=== PATIENT | male | born 1945 | race Caucasian/White ===

== ENCOUNTER 2021-11-07 08:29 | Outpatient (CLI) | payer MEDICARE ==
[~2021-11-07 08:29] MED LIST: AMLO1CAP PO; ASCO-134 PO; FURO40TA4 PO; POTA8TAB69 PO; PRED5DRO23 RIGHTEYE; VITA1TAB57 PO
== END 2021-11-07 23:59 | disposition home or self-care (01) ==
LOC: CARD DIAG 08:29
PROVIDERS: ATTEND Internal Medicine Cardiovascular Disease
DX: I35.0 Nonrheumatic aortic (valve) stenosis (principal)
CPT/HCPCS: 93306

== ENCOUNTER 2024-12-04 11:30 | Inpatient (IN) | payer MEDICARE ==
[~2024-12-04] VITALS: Ht 170.2 cm; Wt 173.2 kg
[~2024-12-04 11:30] MED LIST changes: -AMLO1CAP PO; +CARV6.2553 PO; +CHOL10008 PO; +FER325T PO; +LOSA1TAB41 PO; +PANT40TA54 PO; -POTA8TAB69 PO; +POTA99CA PO; +TRAM50TA2 PO; +VALA100031 PO
[2024-12-04 12:53] LABS: BASOPHILS # (AUTO) 0.1 X10'3 (0-0.2); BASOPHILS % (AUTO) 0.7 % (0-1); EOSINOPHILS # (AUTO) 0.2 X10'3 (0-0.9); EOSINOPHILS % (AUTO) 2.3 % (0-6); LYMPHOCYTES # (AUTO) 1.5 X10'3 (1.1-4.8); LYMPHOCYTES % (AUTO) 14.2 % (21-51); MEAN PLATELET VOLUME 8.4 FL (7.4-10.4); MONOCYTES # (AUTO) 1.3 X10'3 (0-0.9); MONOCYTES % (AUTO) 12.4 % (2-12); NEUTROPHILS # (AUTO) 7.4 X10'3 (1.8-7.7); NEUTROPHILS % (AUTO) 70.4 % (42-75); PLATELET COUNT 245 X10'3 (140-440); WHITE BLOOD COUNT 10.5 X10'3 (4.5-11.0)
[2024-12-04 13:17] LABS: ALANINE AMINOTRANSFERASE 9 U/L (12-78); ALBUMIN 2.8 G/DL (3.4-5.0); ALBUMIN/GLOBULIN RATIO 0.8 (1.1-1.5); ALKALINE PHOSPHATASE 93 IU/L (46-116); ANION GAP 6 (8-16); ASPARTATE AMINO TRANSFERASE 9 U/L (10-37); BILIRUBIN,TOTAL 0.8 MG/DL (0.1-1.0); BLOOD UREA NITROGEN 20 MG/DL (7-18); BUN/CREATININE RATIO 17.7 (10.0-20.0); CALCIUM 8.3 MG/DL (8.5-10.1); CHLORIDE 102 MMOL/L (99-107); CREATININE 1.13 MG/DL (0.60-1.10); GLUCOSE 74 MG/DL (70-104); POTASSIUM 3.7 MMOL/L (3.5-5.1); SODIUM 140 MMOL/L (135-145); TOTAL CARBON DIOXIDE 32.3 MMOL/L (24-32); TOTAL PROTEIN 6.5 G/DL (6.4-8.2); eCRCL 51 ML/MIN; eGFR 63 ML/MIN
[2024-12-04 13:24] LABS: PRO BRAIN NATRIURETIC PEPTIDE 3522 PG/ML (0-450)
[2024-12-04 13:31] LABS: RED BLOOD COUNT 3.34 X10'6 (4.70-6.10)
[2024-12-04 13:32] LABS: HEMATOCRIT 22.4 % (42.0-52.0); MEAN CORPUSCULAR HEMOGLOBIN 20.9 PG (27.0-31.0); MEAN CORPUSCULAR HGB CONC 31.2 g/dL (33.0-36.5); RED CELL DISTRIBUTION WIDTH 20.4 % (11.5-14.5)
[2024-12-04 13:48] LABS: ANISOCYTOSIS 3+; HYPOCHROMASIA 1+; MICROCYTOSIS 2+; PLATELET ESTIMATE NORMAL; STOMATOCYTES 1+
[2024-12-04] MEDS ORDERED: acetaminophen 325mg tablet PO PRN (14:20)
[2024-12-04] MEDS ORDERED: potassium Cl 20 mEq SR tablet PO PRN (14:20)
[2024-12-04] MEDS ORDERED: potassium Cl 40MEQ/1/2NS 520ml 520 ML IV PRN (14:20)
[2024-12-04] MEDS ORDERED: magnesium sulf-water 2g/50mL 50 ML IV PRN (14:20)
[2024-12-04] MEDS ORDERED: magnesium hydroxide 30ml (MOM) UD suspension PO PRN (14:20)
[2024-12-04] MEDS ORDERED: ondansetron/PF 4mg/2ml inj IV PRN (14:20)
[2024-12-04] MEDS ORDERED: magnesium sulf-water 4G/100mL 100 ML IV PRN (14:20)
[2024-12-04] MEDS: furosemide 10 MG/1 ML 10ml inj IV ONE (14:42)
[2024-12-04] MEDS: ferrous sulfate 325mg tablet PO SCH (17:31)
[2024-12-04] MEDS: furosemide 40mg/4ml inj IV SCH (20:00)
[2024-12-04] MEDS: carVEDilol 3.125mg tablet PO SCH (20:00)
[2024-12-04] MEDS: docusate sod 100mg capsule PO SCH (20:00)
[2024-12-04] MEDS: K and/or MAG REPLACEMENT MC SCH (20:00)
[2024-12-04] MEDS: mag hydrox/Alum hydrox/simeth 30ml oral suspension PO PRN (22:21)
[2024-12-04 23:05] VITALS: BP 98/50; PULSE 66; RESP 12; TEMP 97.8; O2SAT 94
[2024-12-05] VITALS (11 sets, daily range): BP systolic 103–152; BP diastolic 40–77; PULSE 53–85; RESP 13–21; TEMP 97.3–98.5; O2SAT 94–100
[2024-12-05] MEDS: traMADol 50MG tablet PO PRN (00:14)
[2024-12-05 06:06] LABS: BASOPHILS # (AUTO) 0.1 X10'3 (0-0.2); BASOPHILS % (AUTO) 0.7 % (0-1); EOSINOPHILS # (AUTO) 0.2 X10'3 (0-0.9); EOSINOPHILS % (AUTO) 2.9 % (0-6); LYMPHOCYTES # (AUTO) 1.5 X10'3 (1.1-4.8); LYMPHOCYTES % (AUTO) 18.4 % (21-51); MEAN PLATELET VOLUME 8.8 FL (7.4-10.4); MONOCYTES # (AUTO) 1.1 X10'3 (0-0.9); MONOCYTES % (AUTO) 12.9 % (2-12); NEUTROPHILS # (AUTO) 5.5 X10'3 (1.8-7.7); NEUTROPHILS % (AUTO) 65.1 % (42-75); PLATELET COUNT 218 X10'3 (140-440); WHITE BLOOD COUNT 8.4 X10'3 (4.5-11.0)
[2024-12-05 06:29] LABS: ALANINE AMINOTRANSFERASE 13 U/L (12-78); ALBUMIN 2.6 G/DL (3.4-5.0); ALBUMIN/GLOBULIN RATIO 0.7 (1.1-1.5); ALKALINE PHOSPHATASE 90 IU/L (46-116); ANION GAP 4 (8-16); ASPARTATE AMINO TRANSFERASE 12 U/L (10-37); BILIRUBIN,TOTAL 0.9 MG/DL (0.1-1.0); BLOOD UREA NITROGEN 19 MG/DL (7-18); BUN/CREATININE RATIO 17.8 (10.0-20.0); CALCIUM 8.3 MG/DL (8.5-10.1); CHLORIDE 101 MMOL/L (99-107); CREATININE 1.07 MG/DL (0.60-1.10); GLUCOSE 78 MG/DL (70-104); MAGNESIUM 2.4 MG/DL (1.5-2.4); POTASSIUM 3.4 MMOL/L (3.5-5.1); SODIUM 141 MMOL/L (135-145); TOTAL CARBON DIOXIDE 36.2 MMOL/L (24-32); TOTAL PROTEIN 6.1 G/DL (6.4-8.2); eCRCL 54 ML/MIN; eGFR 67 ML/MIN
[2024-12-05 07:05] LABS: HEMATOCRIT 22.8 % (42.0-52.0); MEAN CORPUSCULAR HEMOGLOBIN 20.7 PG (27.0-31.0); MEAN CORPUSCULAR HGB CONC 29.6 g/dL (33.0-36.5); RED BLOOD COUNT 3.25 X10'6 (4.70-6.10); RED CELL DISTRIBUTION WIDTH 20.9 % (11.5-14.5)
[2024-12-05 07:07] LABS: HEMOGLOBIN 6.7 g/dl (14.0-17.9)
[2024-12-05 08:05] LABS: ANISOCYTOSIS 3+; ELLIPTOCYTES 1+; HYPOCHROMASIA 2+; MICROCYTOSIS 2+; PLATELET ESTIMATE NORMAL; POLYCHROMASIA 1+; STOMATOCYTES 1+
[2024-12-05] MEDS: potassium Cl 20 mEq SR tablet PO PRN (08:33)
[2024-12-05] MEDS: magnesium Cl slow-release 64mg tablet PO PRN (08:33)
[2024-12-05] MEDS: cholecalciferol (vitamin D3) 1,000 unit (25mcg) tablet PO SCH (10:25)
[2024-12-05] MEDS ORDERED: traMADol 50MG tablet PO PRN (13:00)
[2024-12-05] MEDS: valacyclovir 500mg tablet PO SCH (13:25)
[2024-12-05 15:56] LABS: BILIRUBIN,URINE NEGATIVE (Neg); CLARITY,URINE CLEAR (Clear); COLOR,URINE YELLOW (Yellow); GLUCOSE, URINE NEGATIVE (Neg); KETONES,URINE NEGATIVE (Neg); LEUKOCYTE ESTERASE ,URINE TRACE (Neg); NITRITES, URINE NEGATIVE (Neg); OCCULT BLOOD,URINE NEGATIVE (Neg); PH,URINE 5.5 (4.8-8.0); PROTEIN,URINE NEGATIVE (Neg); UROBILINOGEN,URINE 0.2 E.U/dL (0.2-1.0)
[2024-12-05 15:58] LABS: UA COLLECTION TYPE NON-SPECIFIED
[2024-12-05 16:22] LABS: BACTERIA,URINE 4+ /HPF (Neg); CAL OXALATE CRYSTALS FEW /HPF (NEGATIVE); MUCUS STRANDS NONE SEEN /LPF (Neg); RBC,URINE 0-2 /HPF (0-2); SQUAMOUS EPITHELIAL CELL,UR NONE SEEN /LPF (FEW); WBC,URINE 0-4 /HPF (0-4)
[2024-12-05 16:48] LABS: OCCULT BLOOD STOOL NEGATIVE (Neg)
[2024-12-05] MEDS: furosemide 20 MG/2 ML vial IV ONE (16:56)
[2024-12-05] MEDS ORDERED: pantoprazole 40mg Tablet.DR PO SCH (20:00)
[2024-12-05] MEDS ORDERED: carVEDilol 3.125mg tablet PO SCH (20:00)
[2024-12-05 20:18] LABS: HEMATOCRIT 26.2 % (42.0-52.0); HEMOGLOBIN 7.7 g/dl (14.0-17.9); MEAN CORPUSCULAR HEMOGLOBIN 20.5 PG (27.0-31.0); MEAN CORPUSCULAR HGB CONC 29.3 g/dL (33.0-36.5); MEAN CORPUSCULAR VOLUME 70.2 FL (78-98); MEAN PLATELET VOLUME 8.7 FL (7.4-10.4); PLATELET COUNT 258 X10'3 (140-440); RED BLOOD COUNT 3.74 X10'6 (4.70-6.10); RED CELL DISTRIBUTION WIDTH 22.1 % (11.5-14.5); WHITE BLOOD COUNT 10.3 X10'3 (4.5-11.0)
[2024-12-05] MEDS: ferrous sulfate 325mg tablet PO SCH (20:25)
[2024-12-05] MEDS: EMPAGLIFLOZIN 10 MG TABLET PO SCH (20:25)
[2024-12-05] MEDS: pantoprazole 40 MG vial IV SCH (20:26)
[2024-12-06] VITALS (15 sets, daily range): BP systolic 98–148; BP diastolic 40–79; PULSE 50–76; RESP 13–20; TEMP 97.8–98.1; O2SAT 91–100
[2024-12-06] MEDS: losartan 50mg tablet PO SCH (07:35)
[2024-12-06] MEDS: vitamin B comp w/Vit. C tab 1 TAB TABLET PO SCH (07:35)
[2024-12-06] MEDS: HYDROchlorothiazide 12.5mg capsule PO SCH (07:35)
[2024-12-06 07:58] LABS: BASOPHILS % (AUTO) 0.4 % (0-1); EOSINOPHILS # (AUTO) 0.2 X10'3 (0-0.9); EOSINOPHILS % (AUTO) 2.5 % (0-6); HEMATOCRIT 25.7 % (42.0-52.0); HEMOGLOBIN 7.5 g/dl (14.0-17.9); LYMPHOCYTES # (AUTO) 1.4 X10'3 (1.1-4.8); LYMPHOCYTES % (AUTO) 16.5 % (21-51); MEAN CORPUSCULAR HEMOGLOBIN 20.2 PG (27.0-31.0); MEAN CORPUSCULAR VOLUME 69.8 FL (78-98); MEAN PLATELET VOLUME 8.8 FL (7.4-10.4); MONOCYTES # (AUTO) 1.1 X10'3 (0-0.9); MONOCYTES % (AUTO) 12.2 % (2-12); NEUTROPHILS # (AUTO) 5.9 X10'3 (1.8-7.7); NEUTROPHILS % (AUTO) 68.4 % (42-75); PLATELET COUNT 213 X10'3 (140-440); RED BLOOD COUNT 3.69 X10'6 (4.70-6.10); RED CELL DISTRIBUTION WIDTH 21.5 % (11.5-14.5); WHITE BLOOD COUNT 8.6 X10'3 (4.5-11.0)
[2024-12-06 08:26] LABS: HYPOCHROMASIA 1+; MICROCYTOSIS 3+; PLATELET ESTIMATE NORMAL; POIKILOCYTOSIS 1+
[2024-12-06 08:32] LABS: ALANINE AMINOTRANSFERASE 10 U/L (12-78); ALBUMIN 2.6 G/DL (3.4-5.0); ALBUMIN/GLOBULIN RATIO 0.7 (1.1-1.5); ALKALINE PHOSPHATASE 92 IU/L (46-116); ANION GAP 6 (8-16); ASPARTATE AMINO TRANSFERASE 16 U/L (10-37); BILIRUBIN,TOTAL 1.6 MG/DL (0.1-1.0); BLOOD UREA NITROGEN 22 MG/DL (7-18); BUN/CREATININE RATIO 20.6 (10.0-20.0); CHLORIDE 102 MMOL/L (99-107); CREATININE 1.07 MG/DL (0.60-1.10); GLUCOSE 87 MG/DL (70-104); POTASSIUM 4.1 MMOL/L (3.5-5.1); SODIUM 142 MMOL/L (135-145); TOTAL CARBON DIOXIDE 34.5 MMOL/L (24-32); TOTAL PROTEIN 6.2 G/DL (6.4-8.2); eCRCL 54 ML/MIN; eGFR 67 ML/MIN
[2024-12-06 10:27] LABS: FERRITIN 11 NG/ML (26-388)
[2024-12-06 10:39] LABS: % IRON SATURATION 15 % (11-46); IRON 58 UG/DL (53-167); TOTAL IRON BINDING CAPACITY 384 UG/DL (259-388)
[2024-12-06] MEDS ORDERED: MIDAZolam 1 MG/ML 5ML VIAL ONE (15:13)
[2024-12-06] MEDS ORDERED: fentaNYL/PF 50MCG/1 ML 2ML syringe ONE (15:13)
[2024-12-07 02:00] VITALS: BP 118/65; PULSE 55; RESP 12; TEMP 97.2; O2SAT 97
[2024-12-07 06:59] LABS: BASOPHILS # (AUTO) 0.1 X10'3 (0-0.2); BASOPHILS % (AUTO) 1.3 % (0-1); EOSINOPHILS # (AUTO) 0.3 X10'3 (0-0.9); EOSINOPHILS % (AUTO) 3.1 % (0-6); LYMPHOCYTES # (AUTO) 1.4 X10'3 (1.1-4.8); LYMPHOCYTES % (AUTO) 16.1 % (21-51); MEAN PLATELET VOLUME 8.7 FL (7.4-10.4); NEUTROPHILS # (AUTO) 6.2 X10'3 (1.8-7.7); NEUTROPHILS % (AUTO) 68.5 % (42-75); PLATELET COUNT 189 X10'3 (140-440)
[2024-12-07 07:10] LABS: ALANINE AMINOTRANSFERASE 11 U/L (12-78); ALBUMIN 2.5 G/DL (3.4-5.0); ALBUMIN/GLOBULIN RATIO 0.7 (1.1-1.5); ALKALINE PHOSPHATASE 87 IU/L (46-116); ANION GAP 4 (8-16); ASPARTATE AMINO TRANSFERASE 24 U/L (10-37); BILIRUBIN,TOTAL 1.1 MG/DL (0.1-1.0); BLOOD UREA NITROGEN 18 MG/DL (7-18); BUN/CREATININE RATIO 17.8 (10.0-20.0); CALCIUM 8.3 MG/DL (8.5-10.1); CHLORIDE 100 MMOL/L (99-107); CREATININE 1.01 MG/DL (0.60-1.10); GLUCOSE 92 MG/DL (70-104); MAGNESIUM 2.7 MG/DL (1.5-2.4); PRO BRAIN NATRIURETIC PEPTIDE 3331 PG/ML (0-450); SODIUM 140 MMOL/L (135-145); TOTAL CARBON DIOXIDE 35.6 MMOL/L (24-32); TOTAL PROTEIN 6.1 G/DL (6.4-8.2); eCRCL 57 ML/MIN; eGFR 72 ML/MIN
[2024-12-07 07:22] LABS: RED BLOOD COUNT 3.42 X10'6 (4.70-6.10)
[2024-12-07 07:23] LABS: HEMATOCRIT 23.6 % (42.0-52.0); MEAN CORPUSCULAR HEMOGLOBIN 20.8 PG (27.0-31.0); MEAN CORPUSCULAR HGB CONC 30.2 g/dL (33.0-36.5); RED CELL DISTRIBUTION WIDTH 21.5 % (11.5-14.5)
[2024-12-07 08:00] VITALS: BP_SYST 128; PULSE 53
[2024-12-07] MEDS ORDERED: nystatin 15 GM powder TP SCH (08:00)
[2024-12-07] MEDS: nystatin 15 GM powder TP SCH (08:24)
[2024-12-07 08:25] VITALS: RESP 13
[2024-12-07] MEDS: HYDROcodone/acetaminophen 5mg/325mg tablet PO PRN (08:25)
[2024-12-07 10:51] LABS: HEMOGLOBIN 7.1 g/dl (14.0-17.9)
[2024-12-07] MEDS ORDERED: EMPA10TA PO (15:05)
[2024-12-07] MEDS ORDERED: APIX5TAB3 PO (15:05)
[2024-12-07] MEDS ORDERED: CARV6.2553 PO (15:05)
[2024-12-07] MEDS ORDERED: PANT40TA54 PO (15:05)
[2024-12-07] MEDS ORDERED: ATOR20TA66 PO (15:09)
[2024-12-07] MEDS: heparin, porcine 5000 units/ml vial SQ SCH (16:22)
[2024-12-07] MEDS ORDERED: pantoprazole 40mg Tablet.DR PO SCH (20:00)
[2024-12-08] MEDS ORDERED: prednisoLONE acetate 1% ophth susp 5ml RIGHTEYE SCH (08:00)
== END 2024-12-07 16:57 | disposition home health service (06) | DRG 811 ==
LOC: ER 11:30 → ED HOLD 14:21 → PCU 3S 23:05
PROVIDERS: ADMIT Internal Medicine; ATTEND Family Medicine
PROC: 30233N1 Transfusion of Nonautologous Red Blood Cells into Peripheral Vein, Percutaneous Approach (ICD-10-PCS; 2024-12-05)
PROC: 0DJ08ZZ Inspection of Upper Intestinal Tract, Via Natural or Artificial Opening Endoscopic (ICD-10-PCS; principal; 2024-12-06)
DX: D50.9 Iron deficiency anemia, unspecified (principal); K76.7 Hepatorenal syndrome; I50.32 Chronic diastolic (congestive) heart failure; Z68.43 Body mass index [BMI] 50.0-59.9, adult; E66.2 Morbid (severe) obesity with alveolar hypoventilation; R60.1 Generalized edema; K21.9 Gastro-esophageal reflux disease without esophagitis; Z66 Do not resuscitate; F10.10 Alcohol abuse, uncomplicated; I11.0 Hypertensive heart disease with heart failure; I48.0 Paroxysmal atrial fibrillation; I35.0 Nonrheumatic aortic (valve) stenosis; I73.9 Peripheral vascular disease, unspecified; J44.9 Chronic obstructive pulmonary disease, unspecified; F17.200 Nicotine dependence, unspecified, uncomplicated; E78.5 Hyperlipidemia, unspecified; Z99.3 Dependence on wheelchair; Z79.899 Other long term (current) drug therapy
CPT/HCPCS: 36415; 36430; 43235; 71045; 80053; 81001; 82272; 82728; 83540; 83550; 83735; 83880; 84484; 85008; 85025; 85027; 86870; 86885; 86900; 86901; 86902; 86905; 86922; 87081; 87088; 93005; 93306; 94760; 97161; 97530; 99152; 99285; A4314; A4340; A4615; A4620; A6590; G0378; J1644; J1940; J2250; J2470; J3010; J7030; J7040; J7050; P9016

== ENCOUNTER 2025-03-17 12:12 | Outpatient (CLI) | payer MEDICARE ==
[~2025-03-17 12:12] MED LIST changes: +APIX5TAB3 PO; +ATOR20TA66 PO; +EMPA10TA PO
[2025-03-17 13:06] LABS: ALBUMIN 2.6 G/DL (3.4-5.0); ANION GAP 4 (8-16); BLOOD UREA NITROGEN 15 MG/DL (7-18); BUN/CREATININE RATIO 18.1 (10.0-20.0); CALCIUM 8.3 MG/DL (8.5-10.1); CHLORIDE 102 MMOL/L (99-107); CREATININE 0.83 MG/DL (0.60-1.10); GLUCOSE 87 MG/DL (70-104); POTASSIUM 3.5 MMOL/L (3.5-5.1); SODIUM 139 MMOL/L (135-145); eGFR 90 ML/MIN
[2025-03-17 13:10] LABS: APTT 28 SECONDS (22-32); INR 1.2 INR; PROTHROMBIN TIME 11.7 SECONDS (9.0-12.0)
[2025-03-17 13:16] LABS: BASOPHILS % (AUTO) 0.4 % (0-1); EOSINOPHILS # (AUTO) 0.2 X10'3 (0-0.9); EOSINOPHILS % (AUTO) 2.3 % (0-6); LYMPHOCYTES # (AUTO) 1.5 X10'3 (1.1-4.8); LYMPHOCYTES % (AUTO) 15.9 % (21-51); MEAN PLATELET VOLUME 8.7 FL (7.4-10.4); MONOCYTES # (AUTO) 0.9 X10'3 (0-0.9); MONOCYTES % (AUTO) 9.2 % (2-12); NEUTROPHILS # (AUTO) 6.9 X10'3 (1.8-7.7); NEUTROPHILS % (AUTO) 72.2 % (42-75); PLATELET COUNT 289 X10'3 (140-440); WHITE BLOOD COUNT 9.6 X10'3 (4.5-11.0)
[2025-03-17 13:29] LABS: HEMATOCRIT 22.2 % (42.0-52.0); RED BLOOD COUNT 3.36 X10'6 (4.70-6.10)
[2025-03-17 13:30] LABS: MEAN CORPUSCULAR HEMOGLOBIN 20.3 PG (27.0-31.0)
[2025-03-17 13:31] LABS: MEAN CORPUSCULAR HGB CONC 30.7 g/dL (33.0-36.5); RED CELL DISTRIBUTION WIDTH 21.5 % (11.5-14.5)
[2025-03-17 13:54] LABS: HEMOGLOBIN 6.8 g/dl (14.0-17.9)
== END 2025-03-17 23:59 | disposition home or self-care (01) ==
LOC: LAB 12:12 → EDSTATUS 03-18 09:30
PROVIDERS: ATTEND Internal Medicine Cardiovascular Disease
DX: I50.32 Chronic diastolic (congestive) heart failure (principal); R94.39 Abnormal result of other cardiovascular function study; R53.83 Other fatigue; R06.00 Dyspnea, unspecified
CPT/HCPCS: 36415; 80048; 85025; 85610; 85730